=== PATIENT | female | born 1940 | race Caucasian/White ===

== ENCOUNTER 2018-06-01 21:27 | Inpatient (IN) | payer SELFPAY ==
[~2018-06-01] VITALS: Ht 152.4 cm; Wt 60.9 kg
[2018-06-01] MEDS ORDERED: METO-416 PO (21:45)
[2018-06-01] MEDS ORDERED: ATOR20TA86 PO (21:45)
[2018-06-01] MEDS ORDERED: AMLO-511 PO (21:46)
[2018-06-01] MEDS ORDERED: OMEP20 PO (21:47)
[2018-06-01] MEDS ORDERED: ZIAC5 PO (21:54)
[2018-06-01] MEDS ORDERED: ONDANSETRON HCL 4 MG/2 ML VIAL IVP ONE (22:00)
[2018-06-01] MEDS ORDERED: MORPHINE SULFATE 4 MG/ML SYRINGE IVP ONE ×2 (22:00→23:15)
[2018-06-01 22:10] LABS: BASOPHILS % (AUTO) 0.9 % (0.0-2.0); EOSINOPHILS % (AUTO) 2.9 % (1.0-6.0); HEMATOCRIT 22.8 % (36-46); HEMOGLOBIN 7.1 g/dL (12.0-16.0); LYMPHOCYTES # (AUTO) 4.3 K/uL (1.0-4.8); LYMPHOCYTES % (AUTO) 47.5 % (22.0-44.0); MEAN CORPUSCULAR HEMOGLOBIN 21.4 pg (26.0-34.0); MEAN CORPUSCULAR VOLUME 69 fL (80-100); MONOCYTES # (AUTO) 0.7 K/uL (0.1-1.0); MONOCYTES % (AUTO) 7.9 % (2.0-9.0); NEUTROPHILS # (AUTO) 3.7 K/uL (1.8-7.7); NEUTROPHILS % (AUTO) 40.8 % (40.0-70.0); PLATELET COUNT (AUTO) 303 K/uL (150-450); RED BLOOD CELL COUNT(AUTO) 3.29 MIL/uL (4.00-5.20); RED CELL DISTRIBUTION WIDTH 20.1 % (11.5-14.5)
[2018-06-01 22:33] LABS: CALCIUM, TOTAL 9.5 mg/dL (8.8-10.5); CREATININE 1.42 mg/dL (0.60-1.30); POTASSIUM 3.6 mmol/L (3.5-5.1)
[2018-06-01 22:36] LABS: PROTHROMBIN TIME 10.2 SEC (9.4-11.6)
[2018-06-01 22:40] LABS: ALBUMIN 3.2 g/dL (3.4-5.0); BILIRUBIN,TOTAL 0.3 mg/dL (0.1-1.0); TOTAL PROTEIN, SERUM 7.1 g/dL (6.4-8.2)
[2018-06-01] MEDS ORDERED: SODIUM CHLORIDE 0.9% 500 ML IV ONE (23:15)
[2018-06-01] MEDS ORDERED: IOVERSOL 320 MG/ML 100 ML VIAL ONE (23:18)
[2018-06-01] MEDS ORDERED: SODIUM CHLORIDE 0.9% 100 ML ONE (23:18)
[2018-06-02] VITALS (15 sets, daily range): BP systolic 107–148; BP diastolic 58–82
[2018-06-02] MEDS ORDERED: HYDROmorphone 2 MG/ML SYRINGE IVP ONE (01:30)
[2018-06-02] MEDS ORDERED: ONDANSETRON HCL 4 MG/2 ML VIAL IVP ONE (01:30)
[2018-06-02 02:10] LABS: APPEARANCE,URINE CLEAR (CLEAR); BILIRUBIN,URINE NEGATIVE (NEGATIVE); GLUCOSE, URINE (UA) NEGATIVE (NEGATIVE); KETONES,URINE NEGATIVE (NEGATIVE); LEUKOCYTE ESTERASE ,URINE NEGATIVE (NEGATIVE); NITRATE,URINE NEGATIVE (NEGATIVE); OCCULT BLOOD,URINE NEGATIVE (NEGATIVE); PH,URINE 6.5 (5.0-8.0); PROTEIN,URINE NEGATIVE (NEGATIVE); UROBILINOGEN,URINE 0.2 mg/dL (<=1.0)
[2018-06-02] MEDS ORDERED: MORPHINE SULFATE 4 MG/ML SYRINGE IVP PRN ×2 (04:30→11:00)
[2018-06-02] MEDS ORDERED: METO50 PO (05:25)
[2018-06-02] MEDS ORDERED: PNEUMOCOCCAL VACCINE POLYVALENT 0.5 ML VIAL [PPSV23] IM ONE (05:30)
[2018-06-02 07:48] LABS: BASOPHILS % (AUTO) 0.9 % (0.0-2.0); EOSINOPHILS % (AUTO) 2.5 % (1.0-6.0); HEMATOCRIT 21.3 % (36-46); LYMPHOCYTES # (AUTO) 3.3 K/uL (1.0-4.8); LYMPHOCYTES % (AUTO) 41.4 % (22.0-44.0); MEAN CORPUSCULAR HGB CONC 29.9 G/dL (31.0-37.0); MEAN CORPUSCULAR VOLUME 70 fL (80-100); MONOCYTES # (AUTO) 0.7 K/uL (0.1-1.0); MONOCYTES % (AUTO) 9.1 % (2.0-9.0); NEUTROPHILS # (AUTO) 3.6 K/uL (1.8-7.7); NEUTROPHILS % (AUTO) 46.1 % (40.0-70.0); PLATELET COUNT (AUTO) 260 K/uL (150-450); RED BLOOD CELL COUNT(AUTO) 3.02 MIL/uL (4.00-5.20)
[2018-06-02 08:01] LABS: HEMOGLOBIN 6.4 g/dL (12.0-16.0)
[2018-06-02] MEDS ORDERED: LEVO100 PO (08:07)
[2018-06-02 09:18] LABS: % IRON SATURATION 2.6 % (22-44)
[2018-06-02] MEDS ORDERED: SODIUM CHLORIDE 0.9% 250 ML IV ONE (10:45)
[2018-06-02] MEDS ORDERED: IPRATROPIUM BROMIDE 0.5 MG/2.5 ML NEB SOLUTION NEB PRN (11:00)
[2018-06-02] MEDS ORDERED: ZOLPIDEM TARTRATE 10 MG TABLET PO PRN (11:00)
[2018-06-02] MEDS ORDERED: HYDROCODONE/ACETAMINOPHEN 5-325 MG TABLET PO PRN (11:00)
[2018-06-02] MEDS ORDERED: MAGNESIUM HYDROXIDE SUSPENSION 30 ML UDCUP PO PRN (11:00)
[2018-06-02] MEDS ORDERED: ONDANSETRON HCL 4 MG/2 ML VIAL IVP PRN (11:00)
[2018-06-02] MEDS ORDERED: FUROSEMIDE 20 MG/2 ML VIAL IVP ONE (11:15)
[2018-06-02] MEDS: NITROGLYCERIN 2% (1 GM=INCH) PACKET TP SCH ×3 (12:12→23:54)
[2018-06-02] MEDS ORDERED: HEPARIN SODIUM,PORCINE 5,000 UNITS/ML VIAL IVP PRN ×2 (14:45)
[2018-06-02 15:25] LABS: EOSINOPHILS % (AUTO) 4.4 % (1.0-6.0); HEMATOCRIT 27.1 % (36-46); HEMOGLOBIN 8.3 g/dL (12.0-16.0); LYMPHOCYTES # (AUTO) 3.1 K/uL (1.0-4.8); LYMPHOCYTES % (AUTO) 41.6 % (22.0-44.0); MEAN CORPUSCULAR HEMOGLOBIN 22.3 pg (26.0-34.0); MEAN CORPUSCULAR HGB CONC 30.6 G/dL (31.0-37.0); MEAN CORPUSCULAR VOLUME 73 fL (80-100); MONOCYTES # (AUTO) 0.7 K/uL (0.1-1.0); MONOCYTES % (AUTO) 9.3 % (2.0-9.0); NEUTROPHILS # (AUTO) 3.3 K/uL (1.8-7.7); NEUTROPHILS % (AUTO) 43.7 % (40.0-70.0); PLATELET COUNT (AUTO) 278 K/uL (150-450); PROTHROMBIN TIME 10.3 SEC (9.4-11.6); RED BLOOD CELL COUNT(AUTO) 3.72 MIL/uL (4.00-5.20); RED CELL DISTRIBUTION WIDTH 22.2 % (11.5-14.5)
[2018-06-02] MEDS ORDERED: HEPARIN SODIUM,PORCINE 5,000 UNITS/ML VIAL IVP ONE (15:30)
[2018-06-02] MEDS: AmLODIPine BESYLATE 5 MG TABLET PO SCH (17:16)
[2018-06-02] MEDS: DOCUSATE SODIUM 100 MG CAPSULE PO SCH ×2 (17:17→21:06)
[2018-06-02] MEDS: ATORVASTATIN CALCIUM 20 MG TABLET PO SCH (17:17)
[2018-06-02] MEDS: ASPIRIN 81 MG CHEWABLE TABLET PO SCH (17:17)
[2018-06-02] MEDS: HEPARIN SODIUM 25000 UNITS/D5W 250 ML IV PRN (17:19)
[2018-06-02] MEDS: METOPROLOL TARTRATE 50 MG TABLET PO SCH (17:41)
[2018-06-02 18:23] LABS: HEMATOCRIT 29.4 % (36-46); HEMOGLOBIN 8.9 g/dL (12.0-16.0); MEAN CORPUSCULAR HEMOGLOBIN 22.1 pg (26.0-34.0); MEAN CORPUSCULAR HGB CONC 30.3 G/dL (31.0-37.0); MEAN CORPUSCULAR VOLUME 73 fL (80-100); PLATELET COUNT (AUTO) 283 K/uL (150-450); RED BLOOD CELL COUNT(AUTO) 4.03 MIL/uL (4.00-5.20); RED CELL DISTRIBUTION WIDTH 22.4 % (11.5-14.5)
[2018-06-02 19:01] LABS: BAND NEUTROPHILS % (MANUAL) 0 % (0-5)
[2018-06-02 19:06] LABS: BASOPHILS % (MANUAL) 3 % (0-2); EOSINOPHILS % (MANUAL) 2 % (1-6); LYMPHOCYTES % (MANUAL) 27 % (22-44); MONOCYTES % (MANUAL) 6 % (2-9); SEGMENTED NEUTROPHILS % 62 % (40-70)
[2018-06-02 19:09] LABS: PLATELET MORPHOLOGY COMMENT GIANT PLTS PRESENT
[2018-06-02] MEDS ORDERED: DOCUSATE SODIUM 100 MG CAPSULE PO SCH (21:00)
[2018-06-03] VITALS (7 sets, daily range): BP systolic 95–147; BP diastolic 56–74
[2018-06-03 00:06] LABS: HEMATOCRIT 30.7 % (36-46); HEMOGLOBIN 9.4 g/dL (12.0-16.0); MEAN CORPUSCULAR HEMOGLOBIN 22.6 pg (26.0-34.0); MEAN CORPUSCULAR HGB CONC 30.8 G/dL (31.0-37.0); MEAN CORPUSCULAR VOLUME 73 fL (80-100); PLATELET COUNT (AUTO) 288 K/uL (150-450); RED BLOOD CELL COUNT(AUTO) 4.18 MIL/uL (4.00-5.20)
[2018-06-03 00:38] LABS: BAND NEUTROPHILS % (MANUAL) 0 % (0-5)
[2018-06-03 00:40] LABS: BASOPHILS % (MANUAL) 1 % (0-2); EOSINOPHILS % (MANUAL) 3 % (1-6); LYMPHOCYTES % (MANUAL) 34 % (22-44); MONOCYTES % (MANUAL) 9 % (2-9); SEGMENTED NEUTROPHILS % 53 % (40-70)
[2018-06-03] MEDS: NITROGLYCERIN 2% (1 GM=INCH) PACKET TP SCH ×4 (06:34→23:36)
[2018-06-03] MEDS: LEVOTHYROXINE SODIUM 100 MCG TABLET PO SCH (06:34)
[2018-06-03 06:54] LABS: HEMATOCRIT 30.1 % (36-46); HEMOGLOBIN 9.3 g/dL (12.0-16.0); MEAN CORPUSCULAR HEMOGLOBIN 22.7 pg (26.0-34.0); MEAN CORPUSCULAR VOLUME 73 fL (80-100); PLATELET COUNT (AUTO) 279 K/uL (150-450); RED BLOOD CELL COUNT(AUTO) 4.11 MIL/uL (4.00-5.20); RED CELL DISTRIBUTION WIDTH 22.5 % (11.5-14.5)
[2018-06-03 07:26] LABS: BAND NEUTROPHILS % (MANUAL) 0 % (0-5)
[2018-06-03 07:28] LABS: EOSINOPHILS % (MANUAL) 3 % (1-6); LYMPHOCYTES % (MANUAL) 29 % (22-44); MONOCYTES % (MANUAL) 9 % (2-9); SEGMENTED NEUTROPHILS % 59 % (40-70)
[2018-06-03 08:43] LABS: CALCIUM, TOTAL 9.1 mg/dL (8.8-10.5); CREATININE 1.31 mg/dL (0.60-1.30); POTASSIUM 4.1 mmol/L (3.5-5.1)
[2018-06-03] MEDS ORDERED: ASPIRIN 81 MG CHEWABLE TABLET PO SCH (09:00)
[2018-06-03] MEDS ORDERED: ATORVASTATIN CALCIUM 20 MG TABLET PO SCH ×2 (09:00)
[2018-06-03] MEDS ORDERED: METOPROLOL TARTRATE 50 MG TABLET PO SCH (09:00)
[2018-06-03] MEDS ORDERED: OMEPRAZOLE 20 MG CAPSULE PO SCH (09:00)
[2018-06-03] MEDS ORDERED: HYDROCHLOROTHIAZIDE PO SCH (09:00)
[2018-06-03] MEDS ORDERED: BISOPROLOL PO SCH (09:00)
[2018-06-03] MEDS ORDERED: AmLODIPine BESYLATE 5 MG TABLET PO SCH (09:00)
[2018-06-03] MEDS: AmLODIPine BESYLATE 5 MG TABLET PO SCH (09:16)
[2018-06-03] MEDS: PANTOPRAZOLE SODIUM 40 MG/VIAL IVP SCH (09:16)
[2018-06-03] MEDS: METOPROLOL TARTRATE 50 MG TABLET PO SCH (09:17)
[2018-06-03] MEDS: DOCUSATE SODIUM 100 MG CAPSULE PO SCH ×2 (09:17→20:15)
[2018-06-03] MEDS: ASPIRIN 81 MG CHEWABLE TABLET PO SCH (09:18)
[2018-06-03] MEDS: ATORVASTATIN CALCIUM 20 MG TABLET PO SCH (09:18)
[2018-06-03] MEDS ORDERED: ZOLPIDEM TARTRATE 5 MG TABLET PO PRN (13:04)
[2018-06-03 13:54] LABS: HEMATOCRIT 29.8 % (36-46); HEMOGLOBIN 9.3 g/dL (12.0-16.0); MEAN CORPUSCULAR HEMOGLOBIN 22.4 pg (26.0-34.0); MEAN CORPUSCULAR HGB CONC 31.1 G/dL (31.0-37.0); MEAN CORPUSCULAR VOLUME 72 fL (80-100); PLATELET COUNT (AUTO) 285 K/uL (150-450); RED BLOOD CELL COUNT(AUTO) 4.14 MIL/uL (4.00-5.20); RED CELL DISTRIBUTION WIDTH 22.5 % (11.5-14.5)
[2018-06-03 14:04] LABS: CALCIUM, TOTAL 9.1 mg/dL (8.8-10.5); CREATININE 1.23 mg/dL (0.60-1.30); POTASSIUM 4.4 mmol/L (3.5-5.1)
[2018-06-03 14:38] LABS: BAND NEUTROPHILS % (MANUAL) 3 % (0-5); EOSINOPHILS % (MANUAL) 3 % (1-6); LYMPHOCYTES % (MANUAL) 25 % (22-44); MONOCYTES % (MANUAL) 5 % (2-9); SEGMENTED NEUTROPHILS % 64 % (40-70)
[2018-06-03] MEDS: HEPARIN SODIUM 25000 UNITS/D5W 250 ML IV PRN (14:53)
[2018-06-04] VITALS: BP 112/61
[2018-06-04] MEDS: POLYETHYLENE GLYCOL 3350 17 GM PACKET PO SCH (01:33)
[2018-06-04 04:00] VITALS: BP 114/68
[2018-06-04 05:12] LABS: HEMATOCRIT 29.3 % (36-46); HEMOGLOBIN 9.1 g/dL (12.0-16.0); MEAN CORPUSCULAR HEMOGLOBIN 22.4 pg (26.0-34.0); MEAN CORPUSCULAR HGB CONC 30.9 G/dL (31.0-37.0); MEAN CORPUSCULAR VOLUME 73 fL (80-100); PLATELET COUNT (AUTO) 293 K/uL (150-450); RED BLOOD CELL COUNT(AUTO) 4.03 MIL/uL (4.00-5.20); RED CELL DISTRIBUTION WIDTH 22.2 % (11.5-14.5)
[2018-06-04] MEDS: NITROGLYCERIN 2% (1 GM=INCH) PACKET TP SCH ×4 (05:23→23:26)
[2018-06-04 05:33] LABS: ALBUMIN 2.6 g/dL (3.4-5.0); BILIRUBIN,TOTAL 0.4 mg/dL (0.1-1.0); CALCIUM, TOTAL 9.3 mg/dL (8.8-10.5); CREATININE 1.16 mg/dL (0.60-1.30); POTASSIUM 4.4 mmol/L (3.5-5.1); TOTAL PROTEIN, SERUM 6.5 g/dL (6.4-8.2)
[2018-06-04] MEDS: LEVOTHYROXINE SODIUM 100 MCG TABLET PO SCH (06:12)
[2018-06-04 08:00] VITALS: BP 125/68
[2018-06-04 08:40] LABS: BAND NEUTROPHILS % (MANUAL) 2 % (0-5); LYMPHOCYTES % (MANUAL) 29 % (22-44); MONOCYTES % (MANUAL) 7 % (2-9); SEGMENTED NEUTROPHILS % 62 % (40-70)
[2018-06-04] MEDS: METOPROLOL TARTRATE 50 MG TABLET PO SCH (09:00)
[2018-06-04] MEDS: ASPIRIN 81 MG CHEWABLE TABLET PO SCH (09:00)
[2018-06-04] MEDS: ATORVASTATIN CALCIUM 20 MG TABLET PO SCH (09:36)
[2018-06-04] MEDS: DOCUSATE SODIUM 100 MG CAPSULE PO SCH ×2 (09:36→20:07)
[2018-06-04] MEDS: PANTOPRAZOLE SODIUM 40 MG/VIAL IVP SCH (09:36)
[2018-06-04] MEDS: AmLODIPine BESYLATE 5 MG TABLET PO SCH (09:36)
[2018-06-04 12:00] VITALS: BP 132/85
[2018-06-04] MEDS ORDERED: BUPIVACAINE LIPOSOME/PF 1.3%-13.3MG/ML SUSPENSION 10 ML VIAL INJ ONE (12:15)
[2018-06-04] MEDS: HEPARIN SODIUM 25000 UNITS/D5W 250 ML IV PRN (13:36)
[2018-06-04 16:00] VITALS: BP 134/66
[2018-06-04 20:00] VITALS: BP 116/56
[2018-06-05] VITALS (15 sets, daily range): BP systolic 118–165; BP diastolic 58–110
[2018-06-05] MEDS: ACETAMINOPHEN 325 MG TABLET PO PRN ×2 (03:12→16:19)
[2018-06-05] MEDS: NITROGLYCERIN 2% (1 GM=INCH) PACKET TP SCH ×4 (05:24→23:52)
[2018-06-05] MEDS: LEVOTHYROXINE SODIUM 100 MCG TABLET PO SCH (06:16)
[2018-06-05] MEDS ORDERED: LIDOCAINE/PF 1% 30 ML VIAL ONE (08:48)
[2018-06-05] MEDS ORDERED: SODIUM BICARBONATE 50 MEQ/50 ML VIAL ONE (08:48)
[2018-06-05] MEDS ORDERED: IOHEXOL 300 MG/ML 150 ML VIAL ONE (08:48)
[2018-06-05] MEDS ORDERED: HEPARIN SODIUM 1000 UNITS/NS 1,000 ML ONE (08:48)
[2018-06-05] MEDS ORDERED: FentaNYL CITRATE-PF 100 MCG/2 ML VIAL ONE (08:55)
[2018-06-05] MEDS ORDERED: NITROGLYCERIN 50 MG/D5% WATER 0 ML ONE (08:56)
[2018-06-05] MEDS ORDERED: HEPARIN SODIUM,PORCINE 1,000 UNITS/ML 10 ML VIAL ONE (08:56)
[2018-06-05] MEDS ORDERED: VERAPAMIL HCL 2.5 MG/ML 2 ML VIAL ONE (08:56)
[2018-06-05] MEDS ORDERED: MIDAZOLAM HCL 2 MG/2 ML VIAL ONE (08:56)
[2018-06-05] MEDS ORDERED: IOHEXOL 300 MG/ML 100 ML VIAL ONE (08:57)
[2018-06-05] MEDS ORDERED: 0.9% SODIUM CHLORIDE 10 ML SYRINGE IVP ONE (09:30)
[2018-06-05] MEDS ORDERED: SODIUM CHLORIDE 0.9% 500 ML IV ONE (09:52)
[2018-06-05] MEDS ORDERED: MIDAZOLAM HCL 2 MG/2 ML VIAL IVP ONE (09:54)
[2018-06-05] MEDS ORDERED: FentaNYL CITRATE-PF 100 MCG/2 ML VIAL IVP ONE (09:54)
[2018-06-05] MEDS ORDERED: LIDOCAINE 1% 30 ML/SOD BICARB 8.4% 4 ML SQ ONE (09:54)
[2018-06-05] MEDS ORDERED: HEPARIN SODIUM 1000 UNITS/NS 1,000 ML IARTER ONE (09:54)
[2018-06-05] MEDS ORDERED: IOHEXOL 300 MG/ML 150 ML VIAL IARTER ONE (09:57)
[2018-06-05] MEDS ORDERED: CLOPIDOGREL BISULFATE 300 MG TABLET ONE (10:37)
[2018-06-05] MEDS ORDERED: CLOPIDOGREL BISULFATE 300 MG TABLET PO ONE (10:45)
[2018-06-05] MEDS: ATORVASTATIN CALCIUM 20 MG TABLET PO SCH (12:35)
[2018-06-05] MEDS: DOCUSATE SODIUM 100 MG CAPSULE PO SCH ×2 (12:35→20:40)
[2018-06-05] MEDS: POLYETHYLENE GLYCOL 3350 17 GM PACKET PO SCH (12:35)
[2018-06-05] MEDS: METOPROLOL TARTRATE 50 MG TABLET PO SCH (12:36)
[2018-06-05] MEDS: AmLODIPine BESYLATE 5 MG TABLET PO SCH (12:36)
[2018-06-05] MEDS: ASPIRIN 81 MG CHEWABLE TABLET PO SCH (12:36)
[2018-06-05] MEDS: PANTOPRAZOLE SODIUM 40 MG/VIAL IVP SCH (12:37)
[2018-06-06 04:39] VITALS: BP 136/70
[2018-06-06] MEDS: LEVOTHYROXINE SODIUM 100 MCG TABLET PO SCH (05:48)
[2018-06-06] MEDS: NITROGLYCERIN 2% (1 GM=INCH) PACKET TP SCH ×3 (05:48→17:29)
[2018-06-06 07:51] VITALS: BP 132/61
[2018-06-06] MEDS: METOPROLOL TARTRATE 50 MG TABLET PO SCH (08:34)
[2018-06-06] MEDS: ATORVASTATIN CALCIUM 20 MG TABLET PO SCH (08:40)
[2018-06-06] MEDS: AmLODIPine BESYLATE 5 MG TABLET PO SCH (08:40)
[2018-06-06] MEDS: DOCUSATE SODIUM 100 MG CAPSULE PO SCH (08:40)
[2018-06-06] MEDS: ASPIRIN 81 MG CHEWABLE TABLET PO SCH (08:40)
[2018-06-06] MEDS: PANTOPRAZOLE SODIUM 40 MG/VIAL IVP SCH (08:41)
[2018-06-06] MEDS: POLYETHYLENE GLYCOL 3350 17 GM PACKET PO SCH (08:41)
[2018-06-06] MEDS ORDERED: CLOPIDOGREL BISULFATE 75 MG TABLET PO SCH (09:00)
[2018-06-06 11:19] VITALS: BP 120/63
[2018-06-06 15:15] VITALS: BP 128/67
[2018-06-06] MEDS: ACETAMINOPHEN 325 MG TABLET PO PRN (17:29)
[2018-06-06] MEDS ORDERED: DOCU100C33 PO (19:22)
[2018-06-06] MEDS ORDERED: METO1TAB28 PO (19:24)
[2018-06-06] MEDS ORDERED: METO25 PO (19:27)
[2018-06-06] MEDS ORDERED: PANT40TA25 PO (19:28)
[2018-06-06] MEDS ORDERED: POLY238P2 PO (19:29)
[2018-06-06] MEDS ORDERED: ISOS30TA6 PO (19:29)
[2018-06-06] MEDS ORDERED: FERR324T4 PO (19:31)
[2018-06-06] MEDS ORDERED: NITR.4 SL (19:33)
[2018-06-06] MEDS ORDERED: ASPI81 PO (19:33)
[2018-06-06] MEDS ORDERED: ATOR40TA28 PO (19:34)
[2018-06-06] MEDS ORDERED: CLOP75 PO (19:35)
[2018-06-06 19:45] VITALS: BP 120/67
== END 2018-06-06 20:35 | disposition home or self-care (01) | DRG 281 ==
LOC: EMS 21:28 → 5S 06-02 01:00 → ICU 06-02 15:35 → 5S 06-05 18:20
PROVIDERS: ADMIT Hospitalist; ATTEND Hospitalist
PROC: 30233N1 Transfusion of Nonautologous Red Blood Cells into Peripheral Vein, Percutaneous Approach (ICD-10-PCS; 2018-06-02)
PROC: 4A023N7 Measurement of Cardiac Sampling and Pressure, Left Heart, Percutaneous Approach (ICD-10-PCS; principal; 2018-06-05)
PROC: B2131ZZ Fluoroscopy of Multiple Coronary Artery Bypass Grafts using Low Osmolar Contrast (ICD-10-PCS; 2018-06-05)
PROC: B2111ZZ Fluoroscopy of Multiple Coronary Arteries using Low Osmolar Contrast (ICD-10-PCS; 2018-06-05)
PROC: B41F1ZZ Fluoroscopy of Right Lower Extremity Arteries using Low Osmolar Contrast (ICD-10-PCS; 2018-06-05)
DX: I21.4 Non-ST elevation (NSTEMI) myocardial infarction (principal); T82.855A Stenosis of coronary artery stent, initial encounter; D64.9 Anemia, unspecified; N28.9 Disorder of kidney and ureter, unspecified; E11.9 Type 2 diabetes mellitus without complications; E78.5 Hyperlipidemia, unspecified; I11.9 Hypertensive heart disease without heart failure; H54.7 Unspecified visual loss; I25.10 Atherosclerotic heart disease of native coronary artery without angina pectoris; I25.2 Old myocardial infarction; Z95.1 Presence of aortocoronary bypass graft; Z98.61 Coronary angioplasty status; Z90.5 Acquired absence of kidney
CPT/HCPCS: 36430; 71275; 82271; 83540; 83550; 86850; 86900; 86901; 86920; 87081; 93005; 93306; 93459; 93567; 96374; 96375; 96376; C9113; G0378; J1170; J1644; J1940; J2250; J2270; J2405; J3010; J3490; J7040; J7050; P9016; Q9967

== ENCOUNTER 2019-01-08 11:14 | Inpatient (IN) | payer MEDICAID ==
[~2019-01-08] VITALS: Ht 160 cm; Wt 68.3 kg
[~2019-01-08 11:14] MED LIST: AMLO5TAB9 PO; ASPI81 PO; ATOR40TA28 PO; CLOP75TA3 PO; DOCU100C33 PO; FERR324T4 PO; ISOS30TA6 PO; LEVO100 PO; METO25 PO; NITR0.4T52 SL; OMEP20 PO; PANT40TA25 PO; POLY238P2 PO
[2019-01-08] MEDS ORDERED: ONDANSETRON HCL 4 MG/2 ML VIAL IVP ONE (11:45)
[2019-01-08] MEDS ORDERED: HYDROmorphone 2 MG/ML SYRINGE IVP ONE ×2 (11:45→13:30)
[2019-01-08 12:22] LABS: HEMATOCRIT 26.7 % (36-46); HEMOGLOBIN 8.2 g/dL (12.0-16.0); MEAN CORPUSCULAR HEMOGLOBIN 24.8 pg (26.0-34.0); MEAN CORPUSCULAR HGB CONC 30.5 G/dL (31.0-37.0); MEAN CORPUSCULAR VOLUME 81 fL (80-100); PLATELET COUNT (AUTO) 309 K/uL (150-450); RED BLOOD CELL COUNT(AUTO) 3.29 MIL/uL (4.00-5.20); RED CELL DISTRIBUTION WIDTH 19.3 % (11.5-14.5)
[2019-01-08 12:31] LABS: CALCIUM, TOTAL 10.3 mg/dL (8.8-10.5); CREATININE 1.22 mg/dL (0.60-1.30); POTASSIUM 4.5 mmol/L (3.5-5.1)
[2019-01-08 12:36] LABS: ALBUMIN 3.4 g/dL (3.4-5.0); BILIRUBIN,TOTAL 0.3 mg/dL (0.1-1.0); TOTAL PROTEIN, SERUM 7.6 g/dL (6.4-8.2)
[2019-01-08] MEDS ORDERED: MAGNESIUM HYDROXIDE SUSPENSION 30 ML UDCUP PO PRN (12:45)
[2019-01-08] MEDS ORDERED: DEXTROSE 50%-WATER 25 GM/50 ML SYRINGE IVP PRN (12:45)
[2019-01-08] MEDS: AmLODIPine BESYLATE 10 MG TABLET PO SCH (12:54)
[2019-01-08 13:03] LABS: BAND NEUTROPHILS % (MANUAL) 0 % (0-5)
[2019-01-08 13:06] LABS: EOSINOPHILS % (MANUAL) 6 % (1-6); LYMPHOCYTES % (MANUAL) 33 % (22-44); MONOCYTES % (MANUAL) 2 % (2-9); SEGMENTED NEUTROPHILS % 59 % (40-70)
[2019-01-08 13:11] LABS: THYROID STIMULATING HORMONE 0.18 uIU/mL (0.36-3.74)
[2019-01-08] MEDS ORDERED: SODIUM CHLORIDE 0.9% 1,000 ML IV ONE (14:30)
[2019-01-08 18:10] LABS: GLUCOSE,POINT OF CARE 116 MG/DL (70-110)
[2019-01-08 18:14] VITALS: BP 106/83
[2019-01-08] MEDS: ACETAMINOPHEN 325 MG TABLET PO PRN (18:25)
[2019-01-08 19:44] VITALS: BP 144/63
[2019-01-08] MEDS: ATORVASTATIN CALCIUM 20 MG TABLET PO SCH (21:07)
[2019-01-08] MEDS: DOCUSATE SODIUM 100 MG CAPSULE PO SCH (21:07)
[2019-01-08] MEDS: TICAGRELOR 90 MG TABLET PO SCH (21:07)
[2019-01-08] MEDS: METOPROLOL TARTRATE 25 MG TABLET PO SCH (21:08)
[2019-01-08 22:35] LABS: GLUCOMETER DEV NAME(LOC) 5N.2; GLUCOSE,POINT OF CARE 123 MG/DL (70-110)
[2019-01-08 23:29] VITALS: BP 121/59
[2019-01-09] MEDS: ACETAMINOPHEN 325 MG TABLET PO PRN ×4 (01:55→22:00)
[2019-01-09 04:22] VITALS: BP 135/66
[2019-01-09 07:40] VITALS: BP 141/75
[2019-01-09] MEDS: ASPIRIN 81 MG CHEWABLE TABLET PO SCH (08:27)
[2019-01-09] MEDS: METOPROLOL TARTRATE 25 MG TABLET PO SCH ×2 (08:27→20:26)
[2019-01-09] MEDS: TICAGRELOR 90 MG TABLET PO SCH ×2 (08:27→20:26)
[2019-01-09] MEDS: FAMOTIDINE 20 MG TABLET PO SCH (08:28)
[2019-01-09] MEDS: DOCUSATE SODIUM 100 MG CAPSULE PO SCH ×2 (08:28→20:26)
[2019-01-09] MEDS: AmLODIPine BESYLATE 10 MG TABLET PO SCH (08:28)
[2019-01-09] MEDS ORDERED: CLOPIDOGREL BISULFATE 75 MG TABLET PO SCH (09:00)
[2019-01-09 11:25] VITALS: BP 139/67
[2019-01-09 12:06] LABS: GLUCOMETER DEV NAME(LOC) 5S.1; GLUCOSE,POINT OF CARE 78 MG/DL (70-110)
[2019-01-09 12:06] LABS: GLUCOMETER DEV NAME(LOC) 5S.1; GLUCOSE,POINT OF CARE 108 MG/DL (70-110)
[2019-01-09 16:20] VITALS: BP 133/67
[2019-01-09 19:51] VITALS: BP 142/58
[2019-01-09 20:25] LABS: GLUCOMETER DEV NAME(LOC) 5N.2; GLUCOSE,POINT OF CARE 107 MG/DL (70-110)
[2019-01-09] MEDS: ATORVASTATIN CALCIUM 20 MG TABLET PO SCH (20:26)
[2019-01-09 23:31] VITALS: BP 145/65
[2019-01-10 00:23] LABS: APPEARANCE,URINE CLEAR (CLEAR); BILIRUBIN,URINE NEGATIVE (NEGATIVE); GLUCOSE, URINE (UA) NEGATIVE (NEGATIVE); KETONES,URINE NEGATIVE (NEGATIVE); LEUKOCYTE ESTERASE ,URINE NEGATIVE (NEGATIVE); NITRATE,URINE NEGATIVE (NEGATIVE); OCCULT BLOOD,URINE NEGATIVE (NEGATIVE); PH,URINE 6.5 (5.0-8.0); PROTEIN,URINE TRACE (NEGATIVE); UROBILINOGEN,URINE 0.2 mg/dL (<=1.0)
[2019-01-10] MEDS: ACETAMINOPHEN 325 MG TABLET PO PRN ×4 (02:15→20:02)
[2019-01-10] MEDS ORDERED: SODIUM CHLORIDE 0.9% 100 ML ONE (02:25)
[2019-01-10] MEDS ORDERED: IOVERSOL 350 MG/ML 100 ML VIAL ONE (02:25)
[2019-01-10 05:48] VITALS: BP 150/88
[2019-01-10 06:23] LABS: CALCIUM, TOTAL 9.9 mg/dL (8.8-10.5); CREATININE 1.2 mg/dL (0.60-1.30); POTASSIUM 4.2 mmol/L (3.5-5.1)
[2019-01-10 06:34] LABS: HEMATOCRIT 28.6 % (36-46); HEMOGLOBIN 8.7 g/dL (12.0-16.0); MEAN CORPUSCULAR HEMOGLOBIN 24.7 pg (26.0-34.0); MEAN CORPUSCULAR HGB CONC 30.6 G/dL (31.0-37.0); MEAN CORPUSCULAR VOLUME 81 fL (80-100); PLATELET COUNT (AUTO) 338 K/uL (150-450); RED BLOOD CELL COUNT(AUTO) 3.54 MIL/uL (4.00-5.20); RED CELL DISTRIBUTION WIDTH 19.7 % (11.5-14.5)
[2019-01-10 06:56] LABS: BAND NEUTROPHILS % (MANUAL) 0 % (0-5)
[2019-01-10 06:59] LABS: BASOPHILS % (MANUAL) 1 % (0-2); EOSINOPHILS % (MANUAL) 1 % (1-6); LYMPHOCYTES % (MANUAL) 34 % (22-44); MONOCYTES % (MANUAL) 5 % (2-9); SEGMENTED NEUTROPHILS % 59 % (40-70)
[2019-01-10 07:37] VITALS: BP 141/66
[2019-01-10] MEDS: AmLODIPine BESYLATE 10 MG TABLET PO SCH (08:15)
[2019-01-10] MEDS: METOPROLOL TARTRATE 25 MG TABLET PO SCH ×2 (08:15→20:02)
[2019-01-10] MEDS: DOCUSATE SODIUM 100 MG CAPSULE PO SCH ×2 (08:15→20:02)
[2019-01-10] MEDS: TICAGRELOR 90 MG TABLET PO SCH ×2 (08:15→20:02)
[2019-01-10] MEDS: ASPIRIN 81 MG CHEWABLE TABLET PO SCH (08:15)
[2019-01-10] MEDS: FAMOTIDINE 20 MG TABLET PO SCH (08:16)
[2019-01-10 11:20] VITALS: BP 161/71
[2019-01-10 12:05] LABS: GLUCOMETER DEV NAME(LOC) 5N.2; GLUCOSE,POINT OF CARE 111 MG/DL (70-110)
[2019-01-10] MEDS: SUMAtriptan SUCCINATE 25 MG TABLET PO PRN (13:44)
[2019-01-10 15:19] VITALS: BP 161/78
[2019-01-10] MEDS: OxyCODONE HCL/ACETAMINOPHEN 5-325 MG TABLET PO PRN (16:21)
[2019-01-10 19:36] VITALS: BP 138/65
[2019-01-10] MEDS: ATORVASTATIN CALCIUM 20 MG TABLET PO SCH (20:02)
[2019-01-10] MEDS: APIXABAN 5 MG TABLET PO SCH (20:02)
[2019-01-10] MEDS ORDERED: OxyCODONE HCL/ACETAMINOPHEN 5-325 MG TABLET PO ONE (21:00)
[2019-01-10 22:06] LABS: GLUCOMETER DEV NAME(LOC) 5S.2A; GLUCOSE,POINT OF CARE 102 MG/DL (70-110)
[2019-01-10 23:57] VITALS: BP 115/58
[2019-01-11] VITALS (7 sets, daily range): BP systolic 122–166; BP diastolic 54–83
[2019-01-11 00:30] LABS: GLUCOMETER DEV NAME(LOC) 5N.2; GLUCOSE,POINT OF CARE 111 MG/DL (70-110)
[2019-01-11] MEDS: OxyCODONE HCL/ACETAMINOPHEN 5-325 MG TABLET PO PRN ×2 (03:17→14:45)
[2019-01-11] MEDS: SUMAtriptan SUCCINATE 25 MG TABLET PO PRN ×2 (04:43→18:03)
[2019-01-11] MEDS: ACETAMINOPHEN 325 MG TABLET PO PRN ×2 (05:46→18:51)
[2019-01-11 07:00] LABS: GLUCOMETER DEV NAME(LOC) 5N.2; GLUCOSE,POINT OF CARE 103 MG/DL (70-110)
[2019-01-11 08:01] LABS: PLATELET COUNT (AUTO) 323 K/uL (150-450)
[2019-01-11 08:06] LABS: HEMATOCRIT 29.4 % (36-46); HEMOGLOBIN 9.1 g/dL (12.0-16.0); MEAN CORPUSCULAR HEMOGLOBIN 24.9 pg (26.0-34.0); MEAN CORPUSCULAR HGB CONC 31.1 G/dL (31.0-37.0); MEAN CORPUSCULAR VOLUME 80 fL (80-100); RED BLOOD CELL COUNT(AUTO) 3.67 MIL/uL (4.00-5.20); RED CELL DISTRIBUTION WIDTH 19.9 % (11.5-14.5)
[2019-01-11 08:08] LABS: BAND NEUTROPHILS % (MANUAL) 0 % (0-5)
[2019-01-11 08:47] LABS: EOSINOPHILS % (MANUAL) 2 % (1-6); LYMPHOCYTES % (MANUAL) 36 % (22-44); MONOCYTES % (MANUAL) 5 % (2-9); SEGMENTED NEUTROPHILS % 57 % (40-70)
[2019-01-11] MEDS: AmLODIPine BESYLATE 10 MG TABLET PO SCH (09:04)
[2019-01-11] MEDS: DOCUSATE SODIUM 100 MG CAPSULE PO SCH ×2 (09:04→20:23)
[2019-01-11] MEDS: FAMOTIDINE 20 MG TABLET PO SCH (09:05)
[2019-01-11] MEDS: APIXABAN 5 MG TABLET PO SCH ×2 (09:05→20:23)
[2019-01-11] MEDS: TICAGRELOR 90 MG TABLET PO SCH ×2 (09:05→20:22)
[2019-01-11] MEDS: METOPROLOL TARTRATE 25 MG TABLET PO SCH ×2 (09:05→20:23)
[2019-01-11 12:10] LABS: GLUCOMETER DEV NAME(LOC) 5S.2A; GLUCOSE,POINT OF CARE 102 MG/DL (70-110)
[2019-01-11] MEDS: HydrALAZINE HCL 25 MG TABLET PO SCH ×2 (12:29→20:22)
[2019-01-11 17:11] LABS: GLUCOMETER DEV NAME(LOC) 5N.2; GLUCOSE,POINT OF CARE 132 MG/DL (70-110)
[2019-01-11 17:11] LABS: GLUCOMETER DEV NAME(LOC) 5S.2A; GLUCOSE,POINT OF CARE 99 MG/DL (70-110)
[2019-01-11 19:55] LABS: GLUCOMETER DEV NAME(LOC) 5S.1; GLUCOSE,POINT OF CARE 91 MG/DL (70-110)
[2019-01-11] MEDS: ATORVASTATIN CALCIUM 20 MG TABLET PO SCH (20:23)
[2019-01-12 03:00] LABS: GLUCOMETER DEV NAME(LOC) 5N.1; GLUCOSE,POINT OF CARE 83 MG/DL (70-110)
[2019-01-12] MEDS: ACETAMINOPHEN 325 MG TABLET PO PRN (03:20)
[2019-01-12 03:41] VITALS: BP 132/56
[2019-01-12] MEDS: SUMAtriptan SUCCINATE 25 MG TABLET PO PRN (03:58)
[2019-01-12 06:15] LABS: HEMATOCRIT 28.6 % (36-46); HEMOGLOBIN 8.7 g/dL (12.0-16.0); MEAN CORPUSCULAR HEMOGLOBIN 24.5 pg (26.0-34.0); MEAN CORPUSCULAR HGB CONC 30.5 G/dL (31.0-37.0); MEAN CORPUSCULAR VOLUME 80 fL (80-100); PLATELET COUNT (AUTO) 327 K/uL (150-450); RED BLOOD CELL COUNT(AUTO) 3.57 MIL/uL (4.00-5.20); RED CELL DISTRIBUTION WIDTH 20.1 % (11.5-14.5)
[2019-01-12 06:55] LABS: BAND NEUTROPHILS % (MANUAL) 0 % (0-5)
[2019-01-12 06:59] LABS: BASOPHILS % (MANUAL) 2 % (0-2); EOSINOPHILS % (MANUAL) 3 % (1-6); LYMPHOCYTES % (MANUAL) 39 % (22-44); MONOCYTES % (MANUAL) 4 % (2-9); REACTIVE LYMPHOCYTES 2 % (0-0); SEGMENTED NEUTROPHILS % 50 % (40-70)
[2019-01-12 07:27] VITALS: BP 133/75
[2019-01-12] MEDS: DOCUSATE SODIUM 100 MG CAPSULE PO SCH ×2 (08:07→21:26)
[2019-01-12] MEDS: TICAGRELOR 90 MG TABLET PO SCH ×2 (08:07→21:27)
[2019-01-12] MEDS: METOPROLOL TARTRATE 25 MG TABLET PO SCH ×2 (08:07→21:27)
[2019-01-12] MEDS: HydrALAZINE HCL 25 MG TABLET PO SCH ×2 (08:07→21:27)
[2019-01-12] MEDS: APIXABAN 5 MG TABLET PO SCH ×2 (08:07→21:27)
[2019-01-12] MEDS: AmLODIPine BESYLATE 10 MG TABLET PO SCH (08:08)
[2019-01-12] MEDS: FAMOTIDINE 20 MG TABLET PO SCH (08:08)
[2019-01-12] MEDS: KETOROLAC TROMETHAMINE 15 MG/ML VIAL IVP PRN ×3 (08:22→21:34)
[2019-01-12 11:29] VITALS: BP 124/56
[2019-01-12] MEDS ORDERED: PredniSONE 20 MG TABLET PO ONE (12:00)
[2019-01-12] MEDS ORDERED: ESCI10TA PO (13:35)
[2019-01-12] MEDS ORDERED: GLIP5 PO (13:37)
[2019-01-12] MEDS ORDERED: METF-445 PO (13:37)
[2019-01-12 15:04] VITALS: BP 126/64
[2019-01-12 15:15] LABS: GLUCOMETER DEV NAME(LOC) 5N.2; GLUCOSE,POINT OF CARE 108 MG/DL (70-110)
[2019-01-12] MEDS: INSULIN LISPRO 100 UNITS/ML SQ PRN ×2 (18:46→21:40)
[2019-01-12 18:50] LABS: GLUCOMETER DEV NAME(LOC) 5S.1; GLUCOSE,POINT OF CARE 89 MG/DL (70-110)
[2019-01-12 20:11] VITALS: BP 139/67
[2019-01-12] MEDS: ATORVASTATIN CALCIUM 20 MG TABLET PO SCH (21:27)
[2019-01-12 23:07] VITALS: BP 130/60
[2019-01-13 04:35] VITALS: BP 141/75
[2019-01-13 05:51] LABS: GLUCOMETER DEV NAME(LOC) 5N.2; GLUCOSE,POINT OF CARE 154 MG/DL (70-110)
[2019-01-13 05:52] LABS: GLUCOMETER DEV NAME(LOC) 5N.2; GLUCOSE,POINT OF CARE 224 MG/DL (70-110)
[2019-01-13 08:00] VITALS: BP 128/62
[2019-01-13] MEDS: APIXABAN 5 MG TABLET PO SCH (08:32)
[2019-01-13] MEDS: METOPROLOL TARTRATE 25 MG TABLET PO SCH (08:32)
[2019-01-13] MEDS: HydrALAZINE HCL 25 MG TABLET PO SCH (08:32)
[2019-01-13] MEDS: FAMOTIDINE 20 MG TABLET PO SCH (08:32)
[2019-01-13] MEDS: DOCUSATE SODIUM 100 MG CAPSULE PO SCH (08:32)
[2019-01-13] MEDS: AmLODIPine BESYLATE 10 MG TABLET PO SCH (08:32)
[2019-01-13] MEDS: TICAGRELOR 90 MG TABLET PO SCH (08:32)
[2019-01-13] MEDS ORDERED: PredniSONE 20 MG TABLET PO ONE (09:00)
[2019-01-13] MEDS ORDERED: BUPIVACAINE HCL/PF 0.5% 10 ML VIAL INJ ONE (09:15)
[2019-01-13] MEDS ORDERED: LIDOCAINE 1% 10 ML VIAL INJ ONE (09:15)
[2019-01-13] MEDS ORDERED: LIDOCAINE 5% TRANSDERMAL PATCH TD SCH (09:30)
[2019-01-13 11:15] VITALS: BP 121/58
[2019-01-13 15:40] VITALS: BP 125/60
[2019-01-13] MEDS ORDERED: METH4TAB PO (17:50)
[2019-01-13] MEDS ORDERED: DICL50TA9 PO (17:52)
[2019-01-13] MEDS ORDERED: APIX5TAB PO (17:53)
[2019-01-13] MEDS ORDERED: HYDR25TA84 PO (17:54)
[2019-01-13] MEDS ORDERED: TICA90TA PO (17:54)
[2019-01-13] MEDS: KETOROLAC TROMETHAMINE 15 MG/ML VIAL IVP PRN (18:15)
[2019-01-13] MEDS ORDERED: -LIDODERM PATCH NOTE- MISC SCH (21:00)
[2019-01-14] MEDS ORDERED: PredniSONE 20 MG TABLET PO ONE (09:00)
[2019-01-14 20:16] LABS: GLUCOMETER DEV NAME(LOC) 5S.1; GLUCOSE,POINT OF CARE 106 MG/DL (70-110)
[2019-01-15 06:15] LABS: GLUCOMETER DEV NAME(LOC) 5N.2; GLUCOSE,POINT OF CARE 139 MG/DL (70-110)
[2019-01-15 12:31] LABS: GLUCOMETER DEV NAME(LOC) 5N.1; GLUCOSE,POINT OF CARE 118 MG/DL (70-110)
== END 2019-01-13 19:15 | disposition home or self-care (01) | DRG 198 ==
LOC: EMS 11:18 → 5S 14:42
PROVIDERS: ADMIT Internal Medicine; ATTEND Internal Medicine
DX: I25.110 Atherosclerotic heart disease of native coronary artery with unstable angina pectoris (principal); I65.23 Occlusion and stenosis of bilateral carotid arteries; E11.9 Type 2 diabetes mellitus without complications; I48.91 Unspecified atrial fibrillation; E03.9 Hypothyroidism, unspecified; G43.909 Migraine, unspecified, not intractable, without status migrainosus; E78.5 Hyperlipidemia, unspecified; M54.81 Occipital neuralgia; I10 Essential (primary) hypertension; Z79.01 Long term (current) use of anticoagulants; Z79.02 Long term (current) use of antithrombotics/antiplatelets; Z82.49 Family history of ischemic heart disease and other diseases of the circulatory system; Z83.3 Family history of diabetes mellitus; Z85.528 Personal history of other malignant neoplasm of kidney; Z90.5 Acquired absence of kidney; Z95.1 Presence of aortocoronary bypass graft; Z95.5 Presence of coronary angioplasty implant and graft; Z79.899 Other long term (current) drug therapy; Z79.82 Long term (current) use of aspirin
CPT/HCPCS: 70450; 70496; 70498; 84443; 93005; 93306; 93880; 97161; 97165; 97535; J1170; J1885; J2405; J3490; J7050